=== PATIENT | male | born 1995 | race Asian ===

== ENCOUNTER 2018-11-03 08:50 | Outpatient (RCR) | payer OTHER | END 2018-11-06 | LOC: PT 08:50 | PROVIDERS: ATTEND Neurological Surgery | DX: M48.061 Spinal stenosis, lumbar region without neurogenic claudication (principal); M54.16 Radiculopathy, lumbar region; M51.26 Other intervertebral disc displacement, lumbar region ==

== ENCOUNTER 2018-12-01 09:00 | Outpatient (RCR) | payer OTHER | END 2018-12-07 | LOC: PT 09:00 | PROVIDERS: ATTEND Neurological Surgery | DX: M48.061 Spinal stenosis, lumbar region without neurogenic claudication (principal); M54.16 Radiculopathy, lumbar region; M51.26 Other intervertebral disc displacement, lumbar region; M62.81 Muscle weakness (generalized) | CPT/HCPCS: 97139 ==

== ENCOUNTER 2018-12-29 08:00 | Outpatient (RCR) | payer OTHER | END 2019-01-06 | LOC: PT 08:00 | PROVIDERS: ATTEND Neurological Surgery | DX: M48.061 Spinal stenosis, lumbar region without neurogenic claudication (principal); M54.16 Radiculopathy, lumbar region; M51.26 Other intervertebral disc displacement, lumbar region; M62.81 Muscle weakness (generalized) | CPT/HCPCS: 97139 ==